=== PATIENT | female | born 1975 | race Two or more races ===

== ENCOUNTER 2016-12-14 23:49 | Emergency (ER) | payer SELFPAY ==
[~2016-12-14] VITALS: Ht 162.6 cm; Wt 56.7 kg
--- NOTE | 2016-12-15 00:50 | NUR ---
PT WALKED INTO ER C/O ABDOMINAL BLOATING WITH SEVERAL DAYS WITH BLOODY STOOL X1 MONTH
[2016-12-15] MEDS ORDERED: MORPHINE SULFATE 2 MG/1 ML DISP.SYRIN IV ONE (01:00)
[2016-12-15] MEDS ORDERED: ONDANSETRON 4 MG/2 ML VIAL IV ONE (01:00)
[2016-12-15] MEDS ORDERED: IV NORMAL SALINE 1000 ML BAG IV ONE (01:00)
[2016-12-15 01:08] LABS: BASOPHILS # (AUTO) 0.1 K/uL (0.0-8.0); BASOPHILS % (AUTO) 1.1 % (0.0-2.0); EOSINOPHILS # (AUTO) 0.7 K/uL (0.0-0.7); EOSINOPHILS % (AUTO) 10.4 % (0.0-7.0); HEMATOCRIT 38.5 % (31.2-41.9); HEMOGLOBIN 13.1 g/dL (10.9-14.3); LYMPHOCYTES # (AUTO) 3.1 K/uL (20.0-40.0); LYMPHOCYTES % (AUTO) 48.6 % (20.5-51.5); MEAN CORPUSCULAR HEMOGLOBIN 30.6 uug (24.7-32.8); MEAN CORPUSCULAR HGB CONC 34 g/dL (32.3-35.6); MEAN CORPUSCULAR VOLUME 89.7 fL (75.5-95.3); MONOCYTES # (AUTO) 0.5 K/uL (2.0-10.0); MONOCYTES % (AUTO) 7.7 % (0.0-11.0); NEUTROPHILS # (AUTO) 2.1 K/uL (1.8-8.9); NEUTROPHILS % (AUTO) 32.2 % (38.5-71.5); PLATELET COUNT (AUTO) 194 K/uL (179-408); RED BLOOD CELL COUNT(AUTO) 4.29 MIL/uL (3.63-4.92); RED CELL DISTRIBUTION WIDTH 14.1 % (12.3-17.7); WHITE BLOOD COUNT (AUTO) 6.5 K/uL (3.8-11.8)
[2016-12-15] MEDS ORDERED: ONDANSETRON 4 MG/2 ML VIAL ONE (01:08)
[2016-12-15] MEDS ORDERED: MORPHINE SULFATE 4 MG/1 ML DISP.SYRIN ONE (01:08)
[2016-12-15 01:11] LABS: *URINE HCG, QUAL NEGATIVE (NEGATIVE)
[2016-12-15 01:15] LABS: ALBUMIN 3.8 g/dL (3.4-5.0); BILIRUBIN,DIRECT 0.1 mg/dL (0.0-0.2); BILIRUBIN,TOTAL 0.7 mg/dL (0.2-1.0); CALCIUM 8.8 mg/dL (8.5-10.1); CREATININE 0.6 mg/dL (0.6-1.3); POTASSIUM 3.6 mmol/L (3.5-5.1); TOTAL PROTEIN, SERUM 6.6 g/dL (6.4-8.2)
--- NOTE | 2016-12-15 02:50 | NUR ---
IV removed. Catheter intact and site benign. Pressure and 4x4 gauze applied to site. No bleeding noted.
[2016-12-15 02:57] VITALS: BP 107/78
--- NOTE | 2016-12-15 02:57 | NUR ---
Patient discharged to home in stable conditon WITH FRIEND TAKING PATIENT HOME. Written and verbal after care instructions given. Patient verbalizes understanding of instructions. WALKED OUT OF ER WITH STEADY GAIT
== END 2016-12-15 02:59 | disposition home or self-care (01) ==
LOC: ER 23:49
DX: K62.5 Hemorrhage of anus and rectum (principal); J45.909 Unspecified asthma, uncomplicated; Z88.8 Allergy status to other drugs, medicaments and biological substances; F10.20 Alcohol dependence, uncomplicated; F17.200 Nicotine dependence, unspecified, uncomplicated; F12.10 Cannabis abuse, uncomplicated
CPT/HCPCS: 36415; 74176; 80048; 80076; 84703; 85025; 85730; 96361; 96374; 96375; 99285; A4663; J2270; J2405; J7030

== ENCOUNTER 2017-03-26 01:31 | Emergency (ER) | payer OTHER ==
[~2017-03-26] VITALS: Ht 162.6 cm; Wt 59.0 kg
[2017-03-26] MEDS ORDERED: IPRATROPIUM BROMIDE 0.5 MG/2.5 ML NEBU NEB ONE ×2 (01:45→04:15)
[2017-03-26] MEDS ORDERED: MAGNESIUM SULFATE 2 GM in IV DEXTROSE 5% 100 ML IV ONE (01:45)
[2017-03-26] MEDS ORDERED: ALBUTEROL SULFATE 2.5 MG/3 ML NEBU NEB ONE ×2 (01:45→04:15)
[2017-03-26] MEDS ORDERED: methylPREDNISolone SOD SUCC 125 MG/2 ML VIAL IV ONE (01:45)
[2017-03-26] MEDS ORDERED: IV NORMAL SALINE 1000 ML BAG IV ONE ×2 (01:45→02:30)
[2017-03-26] MEDS ORDERED: methylPREDNISolone SOD SUCC 125 MG/2 ML VIAL ONE (01:52)
[2017-03-26] MEDS ORDERED: IPRATROPIUM BROMIDE 0.5 MG/2.5 ML NEBU ONE ×2 (01:54→04:32)
[2017-03-26] MEDS ORDERED: ALBUTEROL SULFATE 2.5 MG/ 0.5 ML NEBU ONE (01:55)
[2017-03-26] MEDS ORDERED: MAGNESIUM SULFATE/D5W 100 ML ONE (01:58)
--- NOTE | 2017-03-26 02:00 | NUR ---
Pt to room and placed on monitor and simple mask. Pt in resp distress. Lung sounds tight diminished air movement. Pt tachypnic, sitting up right and only speaking a few words at a time. Pt was 91% RA. RT paged to bedside for breathing treatment. Dr. Oviedo at bedside, awaiting further orders.
[2017-03-26 02:20] LABS: BASOPHILS # (AUTO) 0.1 K/uL (0.0-8.0); BASOPHILS % (AUTO) 1.1 % (0.0-2.0); EOSINOPHILS # (AUTO) 0.8 K/uL (0.0-0.7); EOSINOPHILS % (AUTO) 8.5 % (0.0-7.0); HEMATOCRIT 47.7 % (37-47); HEMOGLOBIN 15.7 G/DL (12.0-16.0); LYMPHOCYTES # (AUTO) 4.2 K/UL (0.8-4.8); LYMPHOCYTES % (AUTO) 46.9 % (20.5-51.5); MEAN CORPUSCULAR HGB CONC 33 g/dL (32.0-37.0); MEAN CORPUSCULAR VOLUME 90.9 FL (81.0-99.0); MONOCYTES # (AUTO) 0.8 K/UL (0.1-1.30); MONOCYTES % (AUTO) 8.7 % (0.0-11.0); NEUTROPHILS # (AUTO) 3.1 K/UL (1.8-8.9); NEUTROPHILS % (AUTO) 34.8 % (38.5-71.5); PLATELET COUNT (AUTO) 224 K/UL (150-450); RED BLOOD CELL COUNT(AUTO) 5.24 MIL/UL (4.2-5.4)
[2017-03-26 02:26] LABS: CREATININE 0.7 mg/dL (0.6-1.3)
--- NOTE | 2017-03-26 02:30 | NUR ---
Pt seen by MD. WHITMORE established, labd drawn and sent. Pt completed breathing treatment, air movement improved, wheezing continues. Resp distress improving. Pt resting in position of comfort for self.
[2017-03-26 02:42] LABS: BILIRUBIN,DIRECT 0.1 mg/dL (0.0-0.2); BILIRUBIN,TOTAL 0.6 mg/dL (0.2-1.0); TOTAL PROTEIN, SERUM 7.9 g/dL (6.4-8.2)
--- NOTE | 2017-03-26 03:45 | NUR ---
Pt sts she is feeling better. Tachypnea improved resp rate 20-22. Pt maintaining O2 sats >95% on RA. Pt ambulated to and from br with steady gait, no shortness of breath noted.
[2017-03-26 04:02] LABS: ABG BASE EXCESS -2.6 mmol/L; ABG HCO3 21.3 mmol/L; ABG PCO2 34.5 mmHg (35.0-45.0); ABG PH 7.408 (7.350-7.450); ABG PO2 67.8 mmHg (75.0-100.0); ABG SITE RIGHT RADIAL; ABG TOTAL HEMOGLOBIN 14.6 G/dL (12.0-16.0); COHb 1.1 % (0.5-1.5); MetHb 0.4 % (0.0-1.5); O2Hb 91.7 % (94.0-97.0); VENT MODE Room Air
--- NOTE | 2017-03-26 04:30 | NUR ---
Pt receiving additional breathing treatment for cont wheezing. Pt now able to speak full sentences, resp rate improved and appears less anxious. Fluid bolus cont infusing freely to gravity. No complaints at this time
[2017-03-26] MEDS ORDERED: ALBUTEROL SULFATE 2.5 MG/3 ML NEBU ONE (04:31)
[2017-03-26 05:23] LABS: *BILIRUBIN,URIN NEGATIVE (NEGATIVE); *BLOOD, URINE NEGATIVE (NEGATIVE); *COLOR,URINE YELLOW (YELLOW); *KETONES,URINE 1+ (NEGATIVE); *PROTEIN,URINE NEGATIVE (NEGATIVE); *UROBILINOGEN,URINE 0.2 E.U./dl (NORMAL); LEUKOCYTE ESTERASE ,URINE 2+ (NEGATIVE); NITRITE, URINE NEGATIVE (NEGATIVE); UGLUCOSE NEGATIVE (NEGATIVE)
[2017-03-26 05:24] LABS: *CLARITY,URINE HAZY (CLEAR)
[2017-03-26 05:33] LABS: *URINE HCG, QUAL NEGATIVE (NEGATIVE); BACTERIA,URINE MODERATE /HPF (NONE SEEN); SQUAMOUS EPITHELIAL CELL,UR MANY /HPF (NONE SEEN)
--- NOTE | 2017-03-26 05:55 | NUR ---
Pt sts she is feeling much better. Pt stable for discharge per MD. IV dc'd, catheter intact. Drsg applied. No problems noted to site. Pt and family given ACI. Both verbalized understanding of dc instructions. Pt wheeled out of er via w/c with ride home.
[2017-03-26 07:25] VITALS: BP 124/68
== END 2017-03-26 05:55 | disposition home or self-care (01) ==
LOC: ER 01:33
DX: J45.909 Unspecified asthma, uncomplicated (principal); F17.200 Nicotine dependence, unspecified, uncomplicated; Z88.8 Allergy status to other drugs, medicaments and biological substances
CPT/HCPCS: 36415; 36600; 71010; 80048; 80076; 81001; 83605; 84703; 85025; 85730; 87040 ×2; 87086; 93005; 94640 ×2; 96365; 96366; 96375; 99285; A4663; J2930; J3475; J3590 ×2; J7030 ×2